=== PATIENT | female | born 2005 | race Caucasian/White ===

== ENCOUNTER 2025-03-22 16:24 | Inpatient (IN) ==
--- NOTE | 2025-03-22 16:31 | Emergency Department Note ---
Impression & Plan Mandibular fracture, Alcohol intoxication, Fall, Hypokalemia, Chipped tooth ED Provider Note NAME: GILBERT RAMIREZ AGE: 19 SEX: F : 2005 ARRIVES VIA: Ambulance INFORMANT: Patient ED PROVIDER(S): Marcin Hernandez DO CHIEF COMPLAINT: Fall HPI: Patient is a 19-year-old female who fell from 6 feet in the air and she was trying to get down from an elevated surface. She hit her face. She did not pass out. She complaining of jaw pain. She notes she was drinking alcohol today. No chest pain back pain or belly pain. No dysuria, urgency or frequency. No other exacerbating or remitting factors. She denies any medical complaints. No blood thinners. She feels like she did chip a tooth. ADDITIONAL HISTORY OBTAINED: Friends eventually showed up at bedside notes that she did not pass out. Chronic Medical/Social Conditions Affecting Care: Per HPI PAST MEDICAL HISTORY:See Below PAST SURGICAL HISTORY:See Below FAMILY HISTORY:See Below SOCIAL HISTORY:See Below HOME MEDICATIONS:See Below ALLERGIES:See Below VITALS:See Below PHYSICAL EXAMINATION: Primary Survey Airway: Intact Breathing: Normal, breath sounds equal bilaterally Circulation: Skin warm GCS: 15 Secondary Survey GENERAL: alert, crying, tearful, small alcohol of breath HEAD: normal cephalic, atraumatic. Clicking over the bilateral TMJs with opening closing the mouth worse on the left. EYE EXAM: normal conjunctiva, PERRL and EOM's grossly intact OROPHARYNX: no exudate, no erythema, lips, buccal mucosa, and tongue normal and mucous membranes are moist. Small chipped tooth right upper second molar. No exposed pulp. NECK: supple, no nuchal rigidity, no adenopathy, non-tender CHEST: stable to compression anteriorly and posteriorly LUNGS: clear to auscultation. Normal chest wall mechanics HEART: no murmurs, S1 normal and S2 normal ABDOMEN: abdomen soft, non-tender, normo-active bowel sounds, no masses, no rebound or guarding. PELVIS: stable to compression anteriorly and posteriorly BACK: Back is symmetrical on inspection and there is no deformity, no midline tenderness, no CVA tenderness. UPPER EXTREMITIES: full active and passive range of motion of all joints without tenderness to palpation LOWER EXTREMITIES: full active and passive range of motion of all joints without tenderness to palpation NEURO EXAM: Normal sensorium, cranial nerves II-XII grossly intact, normal speech, no gross weakness of arms, no gross weakness of legs. GCS: 15. MEDICAL DECISION MAKING: Patient is a 19-year-old female who fell from an elevated surface of 6 feet. She is complaining of jaw pain. She is intoxicated. IV was established and blood work was obtained. Labs showed no significant leukocytosis or anemia. INR unremarkable. BMP with mild hyponatremia 133 and a mild hypokalemia 3.3. LFTs bilirubin was unremarkable. hCG was negative. UA was clean. Alcohol was positive at just under 200. CT varner scan does show mandible fracture. On exam does not appear to be open. Consulted with our OMFS surgeon Dr. Lexa Jolly and he recommended admission. She also has a small chipped tooth. He will have this followed up on in the morning. I discussed with Dr. William luis patient was admitted for further evaluation management treatment. She was ordered IV fluids as well as IV morphine. Consults/Care Managements Discussions: Per [facility] Triage Nursing notes reviewed. Limited review of prior medical records performed Vital Signs: reviewed and remarkable for no significant abnormalities Differential diagnosis: Differential diagnoses include major intracranial, cervical, spinal, thoracic, abdominal, pelvic and neurologic injury. Fracture, contusion, sprain, strain, laceration, abrasions included as well. ER treatment provided: See below Diagnostics interpreted by me include EKG and cardiac monitoring as listed below: -Cardiac Monitoring: An order was placed for continuous cardiac monitoring. The monitor shows a rate of 70 with sinus rhythm. -ECG: none -Laboratory studies:Interpreted by me as stated above in MDM and shown below. Imaging studies: Xrays: As interpreted by me:none CTs show: CT varner scan shows a mandibular fracture. Procedures: None Critical Care: None Past Med/Surg History Problem List (Updated 03/22/25 @ 18:36 by Marcin Hernandez DO) Chipped tooth (Acute) Hypokalemia (Acute) Fall (Acute) Alcohol intoxication (Acute) Mandibular fracture (Acute) Social History Smoking Status: Unknown if ever smoked Feels Safe at Home: Yes Allergies Allergies Allergy/AdvReac Type Severity Reaction Status Date / Time No Known Allergies Allergy Unverified 03/22/25 18:18 Home Meds Home Medications Medication Instructions Recorded Confirmed sertraline 50 mg tablet 50 mg PO QAM 03/22/25 03/22/25 Results & Data (ED) Vital Signs Vital Signs - 24 hr 03/22/25 16:29 03/22/25 16:29 03/22/25 16:29 Temperature 36.7 C 36.7 C Temperature Source Oral Pulse Rate 100 H 100 H Pulse Rate [Apical] Respiratory Rate 17 17 Respiratory Effort / Characteristics Non-Labored Spontaneous Respiratory Depth Normal Respiratory Pattern Regular Blood Pressure 131/76 131/76 Blood Pressure [Left Arm] Blood Pressure [Right Arm] Blood Pressure Mean 94 Blood Pressure Mean [Left Arm] Blood Pressure Mean [Right Arm] Pulse Oximetry 100 100 100 Oxygen Delivery Method Room Air Room Air Room Air Oxygen Flow Rate 0 Sepsis Recent Fever Within 48 Hours No Sepsis New/Unexplained Change in Mental Status N/A Sepsis Action Taken by Nursing No Action Required 03/22/25 16:34 03/22/25 17:25 03/22/25 18:06 Temperature Temperature Source Pulse Rate 98 H Pulse Rate [Apical] 99 H 62 Respiratory Rate 18 14 Respiratory Effort / Characteristics Non-Labored Spontaneous Respiratory Depth Normal Respiratory Pattern Blood Pressure Blood Pressure [Left Arm] 115/63 Blood Pressure [Right Arm] 121/81 Blood Pressure Mean Blood Pressure Mean [Left Arm] 80 Blood Pressure Mean [Right Arm] 94 Pulse Oximetry 100 98 Oxygen Delivery Method Room Air Room Air Oxygen Flow Rate Sepsis Recent Fever Within 48 Hours Sepsis New/Unexplained Change in Mental Status Sepsis Action Taken by Nursing 03/22/25 18:25 Temperature Temperature Source Pulse Rate Pulse Rate [Apical] 68 Respiratory Rate 18 Respiratory Effort / Characteristics Respiratory Depth Respiratory Pattern Blood Pressure Blood Pressure [Left Arm] Blood Pressure [Right Arm] Blood Pressure Mean Blood Pressure Mean [Left Arm] Blood Pressure Mean [Right Arm] Pulse Oximetry 99 Oxygen Delivery Method Room Air Oxygen Flow Rate Sepsis Recent Fever Within 48 Hours Sepsis New/Unexplained Change in Mental Status Sepsis Action Taken by Nursing Laboratory Data 03/22/25 16:36 03/22/25 16:36 Lab Results 03/22/25 03/22/25 03/22/25 Range/Units 16:36 16:43 18:06 WBC 9.90 (4.8-10.8) K/ul RBC 4.20 (4.20-5.40) M/uL Hgb 12.8 (12.0-16.0) g/dl POC Hgb 13.3 (12.0-16.0) g/dl Hct 37.8 (37.0-47.0) % POC Hct 39 (37-47) % MCV 90.0 (80.0-100.0) fL MCH 30.5 (25.0-34.0) pg MCHC 33.9 (32.0-36.0) g/dL RDW Std Deviation 43.2 (36.4-46.3) fL RDW Coeff of [place] 13.2 (11.5-14.5) % Plt Count 298 (130-400) K/uL MPV 9.7 (9.4-12.4) fL Immature Gran % (Auto) 0.3 % Neut % (Auto) 70.8 % Lymph % (Auto) 21.4 % [place] % (Auto) 4.9 % Eos % (Auto) 2.1 % Baso % (Auto) 0.5 % Neut # (Auto) 7.00 H (1.40-6.50) K/uL Lymph # (Auto) 2.12 (1.20-3.40) K/uL [place] # (Auto) 0.49 (0.11-0.59) K/uL Eos # (Auto) 0.21 (0.00-0.50) K/uL Baso # (Auto) 0.05 (0.00-0.20) K/uL Immature Gran # (Auto) 0.03 (0.01-0.20) K/uL PT 11.2 (9.0-12.0) Seconds INR 1.1 (0.9-1.1) APTT 23 (21-31) Seconds PTT Ratio 0.8 POC Sodium 136 (135-144) mmol/L Sodium 133 L (136-145) mmol/L POC Potassium 3.3 (3.3-5.0) mmol/L Potassium 3.3 L (3.5-5.1) mmol/L POC Chloride 101 (101-112) mmol/L Chloride 101 (98-107) mmol/L Carbon Dioxide 21 (21-32) mmol/L POC Total CO2 20 L (24-31) mmol/L Anion Gap 11 (3-11) POC Anion Gap 19.0 (16-25) mmol/L POC BUN 6 L (7-18) mg/dl BUN 8 (6-23) mg/dl Creatinine 0.77 (0.6-1.2) mg/dl POC Creatinine 1.0 mg/dl Est Cr Clr Drug Dosing 97.2 ml/min eGFR 113.89 BUN/Creatinine Ratio 10.4 (10-20) Glucose 131 H (70-99(Fasting)) mg/dl POC Glucose (other) 129 H (70-99) mg/dl Calcium 9.1 (8.6-10.3) mg/dl POC Ioniz Calcium [place] 1.14 mmol/l Total Bilirubin 0.3 (0.2-1.0) mg/dl AST 60 H (13-39) U/L ALT 45 (7-52) U/L Alkaline Phosphatase 51 (34-104) U/L Total Protein 7.2 (6.0-8.3) gm/dl Albumin 4.3 (3.4-5.0) gm/dl Globulin 2.9 (2.5-4.0) gm/dl Albumin/Globulin Ratio 1.5 (0.9-2) Lipase 26 (11-82) U/L HCG, Qual Negative (Negative) Urine Color Yellow Urine Appearance Clear (Clear) Urine pH 7.5 (4.5-7.5) Ur Specific [place] 1.020 (1.000-1.030) Urine Protein Negative (Negative) Urine Glucose (UA) Negative (Negative) Urine Ketones Negative (Negative) Urine Blood Negative (Negative) Urine Nitrite Negative (Negative) Urine Bilirubin Negative (Negative) Urine Urobilinogen Negative (Negative) Ur Leukocyte Esterase Negative (Negative) Urine Comment Ethyl Alcohol mg/dL 195.3 H (<10.0) mg/dl Administered Medications Discontinued Medications Sodium Chloride (Nss) 1,000 mls @ 999 mls/hr IV .Q1H1M ONE Stop: 03/22/25 17:28 Last Infusion: 03/22/25 18:10 Dose: Infused Documented By: Admin: 03/22/25 17:08 Dose: 999 mls/hr Documented By: TOM Ioversol (Optiray 320 100ml) 94 ml IV ONCE ONE Stop: 03/22/25 16:44 Last Admin: 03/22/25 16:43 Dose: 94 ml Documented By: [place] Morphine Sulfate (Morphine Sulfate 2 Mg/Ml Carp) 2 mg IV NOW STA Stop: 03/22/25 17:50 Last Admin: 03/22/25 18:07 Dose: 2 mg Documented By: JANINE Ondansetron HCl (Ondansetron Inj 2 Mg/Ml 2 Ml Vial) Confirm Administered Dose 4 mg .ROUTE .K-MED ONE Stop: 03/22/25 16:34 Last Admin: 03/22/25 17:08 Dose: 4 mg Documented By: TOM Imaging Data Radiologist's Impression: Chest X-Ray 03/22/25 16:28 EXAM: Radiograph of the Chest 1 View INDICATION: Trauma TECHNIQUE: Frontal view of the chest. COMPARISON: No relevant prior studies available. FINDINGS: Lungs and pleural spaces: No consolidation or pulmonary edema. No pleural effusion or pneumothorax. Heart: Shape and configuration within normal limits allowing for technique. Mediastinum: Normal contour. Bones/joints: No fracture, erosion or dislocation. Soft tissues: No abnormality noted. No radiopaque foreign body noted. Upper abdomen: No abnormality noted. IMPRESSION: No abnormality noted. ACT 112: N/A Electronically signed by Julieta Baker 03-22-2025 5:[address] 03/22/25 16:28 EXAM: CT Maxillofacial Without Intravenous Contrast INDICATION: Trauma TECHNIQUE: Axial computed tomography images of the face without intravenous contrast. Sagittal and coronal reformatted images were created and reviewed. This CT exam was performed using one or more of the following dose reduction techniques: automated exposure control, adjustment of the mA and/or kV according to patient size, and/or use of iterative reconstruction technique. COMPARISON: No relevant prior studies available. FINDINGS: Bones/joints: Acute, nondisplaced fracture left mandibular angle. Mild degenerative changes right TMJ without dislocation. Soft tissues: No significant abnormality noted. Orbits: No abnormality noted. Sinuses: No layering fluid in the visualized portions of the paranasal sinuses. IMPRESSION: Acute, nondisplaced fracture left mandibular angle. ACT 112: N/A Electronically signed by Julieta Baker 03-22-2025 5:[address] 03/22/25 16:28 EXAM: CT Lumbar Spine With Intravenous Contrast INDICATION: Trauma TECHNIQUE: Axial computed tomography images of the lumbar spine with intravenous contrast. Sagittal and coronal reformatted images were created and reviewed. This CT exam was performed using one or more of the following dose reduction techniques: automated exposure control, adjustment of the mA and/or kV according to patient size, and/or use of iterative reconstruction technique. CONTRAST: 94 ml of Optiray 320 was administered intravenously. COMPARISON: No relevant prior studies available. FINDINGS: Limitations: None. Vertebrae: Convex left bowing of the lumbar spine. Lumbar vertebra normally developed and aligned. No fracture. Sacrum/coccyx: No significant abnormality noted. No acute change noted. Discs/spinal canal/neural foramina: No significant disc space abnormality or stenosis. Soft tissues: No significant abnormality noted. IMPRESSION: No acute findings in the lumbar spine. ACT 112: N/A Electronically signed by Julieta Baker 03-22-2025 5:[address] 03/22/25 16:28 EXAM: CT Thoracic Spine With Intravenous Contrast INDICATION: Trauma TECHNIQUE: Axial computed tomography images of the thoracic spine with intravenous contrast. Sagittal and coronal reformatted images were created and reviewed. This CT exam was performed using one or more of the following dose reduction techniques: automated exposure control, adjustment of the mA and/or kV according to patient size, and/or use of iterative reconstruction technique. COMPARISON: No relevant prior studies available. FINDINGS: Limitations: None. Vertebrae: There is mild convex right spinal bowing. No fracture or subluxation. Discs/spinal canal/neural foramina: Minimal diffuse disc space narrowing. Other bones/joints: No abnormality noted. Soft tissues: No significant abnormality noted. Heart: No abnormality noted. Mediastinum: No significant abnormality noted. Liver: No significant abnormality noted. IMPRESSION: No thoracic fracture. ACT 112: N/A Electronically signed by Julieta Baker 03-22-2025 5:15 PM Abdomen/Pelvis CT 03/22/25 16:29 EXAM: CT Abdomen and Pelvis With Intravenous Contrast INDICATION: Trauma TECHNIQUE: Axial computed tomography images of the abdomen and pelvis with intravenous contrast. Sagittal and coronal reformatted images were created and reviewed. This CT exam was performed using one or more of the following dose reduction techniques: automated exposure control, adjustment of the mA and/or kV according to patient size, and/or use of iterative reconstruction technique. CONTRAST: 94 ml of Optiray 320 was administered intravenously. COMPARISON: No relevant prior studies available. FINDINGS: Limitations: None. Lung bases: No abnormality noted. Pleural space: No visualized pleural effusion or pneumothorax. Heart: No abnormality noted. Mediastinum: No abnormality noted. ABDOMEN: Liver: No abnormality noted. Gallbladder and bile ducts: No calcified stones or surrounding fluid. No ductal dilation. Pancreas: Homogeneous enhancement. No mass, inflammation or ductal dilation. Spleen: No significant abnormality noted. Adrenals: No significant abnormality noted. Kidneys and ureters: Normal enhancement. No mass, hydronephrosis or visualized stone. Stomach and bowel: No distension or mucosal thickening. No inflammation noted. PELVIS: Appendix: No findings to suggest acute appendicitis. Bladder: No filling defects to suggest mass or large stone. No inflammation. Reproductive: No abnormalities noted. ABDOMEN and PELVIS: Intraperitoneal space: No free air. No significant fluid collection. Bones/joints: Convex left lumbar scoliotic curvature. Lumbar vertebra and the pelvic bones are intact. Soft tissues: No significant abnormality noted. Vasculature: No abdominal aortic aneurysm. Lymph nodes: No pathologically enlarged lymph nodes. IMPRESSION: Lumbar scoliosis. Otherwise negative abdominal and pelvic CT. ACT 112: N/A Electronically signed by Julieta Baker 03-22-2025 5:[address] 03/22/25 16:29 EXAM: CT Head and Cervical Spine Without Intravenous Contrast INDICATION: Trauma TECHNIQUE: Axial computed tomography images of the head/brain and cervical spine without intravenous contrast. Sagittal and coronal reformatted images were created and reviewed. This CT exam was performed using one or more of the following dose reduction techniques: automated exposure control, adjustment of the mA and/or kV according to patient size, and/or use of iterative reconstruction technique. COMPARISON: No relevant prior studies available. FINDINGS: Limitations: None. Brain and extra-axial spaces: No abnormality noted. No hemorrhage. No significant white matter disease. No edema. No ventriculomegaly. Sinuses: No layering fluid in the visualized portions of the paranasal sinuses. Mastoid air cells: No mastoid effusion. Orbits: No significant abnormality noted. Vertebrae: Vertebral body heights maintained. No fracture or significant subluxation. Discs/spinal canal/neural foramina: No significant disc space abnormality or stenosis. Soft tissues: No significant abnormality noted. Vasculature: No acute abnormality noted. Lung apices: No significant abnormality noted. Pleural space: No visualized pleural effusion or pneumothorax. IMPRESSION: No abnormality CT head or cervical spine. ACT 112: N/A Electronically signed by Julieta Baker 03-22-2025 5:[address] 03/22/25 16:29 EXAM: CT Chest With Intravenous Contrast INDICATION: Trauma TECHNIQUE: Axial computed tomography images of the chest with intravenous contrast. Sagittal and coronal reformatted images were created and reviewed. This CT exam was performed using one or more of the following dose reduction techniques: automated exposure control, adjustment of the mA and/or kV according to patient size, and/or use of iterative reconstruction technique. CONTRAST: 94 ml of Optiray 320 was administered intravenously. COMPARISON: No relevant prior studies available. FINDINGS: Limitations: None. Lungs and pleural spaces: No abnormality noted. No mass. No consolidation. No significant effusion. No pneumothorax. Heart: No abnormality noted. Thyroid: No abnormality noted. Bones/joints: No acute changes. Sternum, shoulders, visualized ribs and thoracic vertebra are intact. Soft tissues: No significant abnormality noted. Vasculature: No abnormality noted. No thoracic aortic aneurysm. Lymph nodes: No enlarged lymph nodes. IMPRESSION: No significant abnormality noted. ACT 112: N/A Electronically signed by Julieta Baker 03-22-2025 5:[address] 03/22/25 16:29 EXAM: CT Head and Cervical Spine Without Intravenous Contrast INDICATION: Trauma TECHNIQUE: Axial computed tomography images of the head/brain and cervical spine without intravenous contrast. Sagittal and coronal reformatted images were created and reviewed. This CT exam was performed using one or more of the following dose reduction techniques: automated exposure control, adjustment of the mA and/or kV according to patient size, and/or use of iterative reconstruction technique. COMPARISON: No relevant prior studies available. FINDINGS: Limitations: None. Brain and extra-axial spaces: No abnormality noted. No hemorrhage. No significant white matter disease. No edema. No ventriculomegaly. Sinuses: No layering fluid in the visualized portions of the paranasal sinuses. Mastoid air cells: No mastoid effusion. Orbits: No significant abnormality noted. Vertebrae: Vertebral body heights maintained. No fracture or significant subluxation. Discs/spinal canal/neural foramina: No significant disc space abnormality or stenosis. Soft tissues: No significant abnormality noted. Vasculature: No acute abnormality noted. Lung apices: No significant abnormality noted. Pleural space: No visualized pleural effusion or pneumothorax. IMPRESSION: No abnormality CT head or cervical spine. ACT 112: N/A Electronically signed by Julieta Baker 03-22-2025 5:03 PM Discharge Plan Visit Data Chief Complaint: Trauma Stated Complaint: TRAUMA ALERT, FALL ED Provider: Marcin Hernandez Discharge Problem: Mandibular fracture, Alcohol intoxication, Fall, Hypokalemia, Chipped tooth Condition: Fair Forms Stand Alone Forms: [facility] [employer] Prescriptions Prescriptions: No Action sertraline 50 mg Tablet 50 mg PO QAM Referrals Referrals: PCP,NO [Physician] - Discharge Problem: Mandibular fracture Qualifiers: Encounter type: initial encounter Fracture type: closed Mandible location: u nspecified site of mandible Laterality: unspecified laterality Qualified Code(s): S02.609A - Fracture of mandible, unspecified, initial encounter for closed fracture Alcohol intoxication Qualifiers: Complication of substance-induced condition: uncomplicated Qualified Code(s): F 10.920 - Alcohol use, unspecified with intoxication, uncomplicated Fall Qualifiers: Encounter type: initial encounter Qualified Code(s): W19.XXXA - Unspecified fall, initial encounter Chipped tooth Qualifiers: Encounter type: initial encounter Fracture type: closed Qualified Code(s): S 02.5XXA - Fracture of tooth (traumatic), initial encounter for closed fracture
[2025-03-22] MEDS: OPTIRAY 320 100ml IV ONE (16:43)
[2025-03-22 16:56] LABS: Hematocrit (blood only) 37.8 % (37.0-47.0); Hemoglobin 12.8 g/dl (12.0-16.0); Immature Granulocytes # (auto) 0.03 K/uL (0.01-0.20); Immature Granulocytes % (auto) 0.3 %; Mean Corpuscular Hemoglobin 30.5 pg (25.0-34.0); Mean Corpuscular Volume 90.0 fL (80.0-100.0); Platelet Count 298 K/uL (130-400); RDW Standard Deviation 43.2 fL (36.4-46.3); Red Blood Count 4.20 M/uL (4.20-5.40); White Blood Count 9.90 K/ul (4.8-10.8)
--- NOTE | 2025-03-22 17:03 | CT Scan Report ---
EXAM: CT Head and Cervical Spine Without Intravenous Contrast INDICATION: Trauma TECHNIQUE: Axial computed tomography images of the head/brain and cervical spine without intravenous contrast. Sagittal and coronal reformatted images were created and reviewed. This CT exam was performed using one or more of the following dose reduction techniques: automated exposure control, adjustment of the mA and/or kV according to patient size, and/or use of iterative reconstruction technique. COMPARISON: No relevant prior studies available. FINDINGS: Limitations: None. Brain and extra-axial spaces: No abnormality noted. No hemorrhage. No significant white matter disease. No edema. No ventriculomegaly. Sinuses: No layering fluid in the visualized portions of the paranasal sinuses. Mastoid air cells: No mastoid effusion. Orbits: No significant abnormality noted. Vertebrae: Vertebral body heights maintained. No fracture or significant subluxation. Discs/spinal canal/neural foramina: No significant disc space abnormality or stenosis. Soft tissues: No significant abnormality noted. Vasculature: No acute abnormality noted. Lung apices: No significant abnormality noted. Pleural space: No visualized pleural effusion or pneumothorax. IMPRESSION: No abnormality CT head or cervical spine. ACT 112: N/A Electronically signed by Julieta Baker 03-22-2025 5:03 PM
--- NOTE | 2025-03-22 17:05 | CT Scan Report ---
EXAM: CT Maxillofacial Without Intravenous Contrast INDICATION: Trauma TECHNIQUE: Axial computed tomography images of the face without intravenous contrast. Sagittal and coronal reformatted images were created and reviewed. This CT exam was performed using one or more of the following dose reduction techniques: automated exposure control, adjustment of the mA and/or kV according to patient size, and/or use of iterative reconstruction technique. COMPARISON: No relevant prior studies available. FINDINGS: Bones/joints: Acute, nondisplaced fracture left mandibular angle. Mild degenerative changes right TMJ without dislocation. Soft tissues: No significant abnormality noted. Orbits: No abnormality noted. Sinuses: No layering fluid in the visualized portions of the paranasal sinuses. IMPRESSION: Acute, nondisplaced fracture left mandibular angle. ACT 112: N/A Electronically signed by Julieta Baker 03-22-2025 5:04 PM
[2025-03-22] MEDS: SODIUM CHLORIDE 0.9% 1,000 ML IV ONE (17:08)
[2025-03-22] MEDS: ONDANSETRON INJ 2 MG/ML 2 ML VIAL ONE (17:08)
--- NOTE | 2025-03-22 17:08 | CT Scan Report ---
EXAM: CT Chest With Intravenous Contrast INDICATION: Trauma TECHNIQUE: Axial computed tomography images of the chest with intravenous contrast. Sagittal and coronal reformatted images were created and reviewed. This CT exam was performed using one or more of the following dose reduction techniques: automated exposure control, adjustment of the mA and/or kV according to patient size, and/or use of iterative reconstruction technique. CONTRAST: 94 ml of Optiray 320 was administered intravenously. COMPARISON: No relevant prior studies available. FINDINGS: Limitations: None. Lungs and pleural spaces: No abnormality noted. No mass. No consolidation. No significant effusion. No pneumothorax. Heart: No abnormality noted. Thyroid: No abnormality noted. Bones/joints: No acute changes. Sternum, shoulders, visualized ribs and thoracic vertebra are intact. Soft tissues: No significant abnormality noted. Vasculature: No abnormality noted. No thoracic aortic aneurysm. Lymph nodes: No enlarged lymph nodes. IMPRESSION: No significant abnormality noted. ACT 112: N/A Electronically signed by Julieta Baker 10-25-5 5:08 PM
--- NOTE | 2025-03-22 17:09 | CT Scan Report ---
EXAM: CT Abdomen and Pelvis With Intravenous Contrast INDICATION: Trauma TECHNIQUE: Axial computed tomography images of the abdomen and pelvis with intravenous contrast. Sagittal and coronal reformatted images were created and reviewed. This CT exam was performed using one or more of the following dose reduction techniques: automated exposure control, adjustment of the mA and/or kV according to patient size, and/or use of iterative reconstruction technique. CONTRAST: 94 ml of Optiray 320 was administered intravenously. COMPARISON: No relevant prior studies available. FINDINGS: Limitations: None. Lung bases: No abnormality noted. Pleural space: No visualized pleural effusion or pneumothorax. Heart: No abnormality noted. Mediastinum: No abnormality noted. ABDOMEN: Liver: No abnormality noted. Gallbladder and bile ducts: No calcified stones or surrounding fluid. No ductal dilation. Pancreas: Homogeneous enhancement. No mass, inflammation or ductal dilation. Spleen: No significant abnormality noted. Adrenals: No significant abnormality noted. Kidneys and ureters: Normal enhancement. No mass, hydronephrosis or visualized stone. Stomach and bowel: No distension or mucosal thickening. No inflammation noted. PELVIS: Appendix: No findings to suggest acute appendicitis. Bladder: No filling defects to suggest mass or large stone. No inflammation. Reproductive: No abnormalities noted. ABDOMEN and PELVIS: Intraperitoneal space: No free air. No significant fluid collection. Bones/joints: Convex left lumbar scoliotic curvature. Lumbar vertebra and the pelvic bones are intact. Soft tissues: No significant abnormality noted. Vasculature: No abdominal aortic aneurysm. Lymph nodes: No pathologically enlarged lymph nodes. IMPRESSION: Lumbar scoliosis. Otherwise negative abdominal and pelvic CT. ACT 112: N/A Electronically signed by Julieta Baker 03-22-2025 5:09 PM
[2025-03-22 17:13] LABS: Alanine Aminotransferase 45.0 U/L (7-52); Albumin Globulin Ratio 1.5 (0.9-2); Albumin Level 4.3 gm/dl (3.4-5.0); Alkaline Phosphatase 51.0 U/L (34-104); Anion Gap 11.0 (3-11); Bilirubin,Total 0.3 mg/dl (0.2-1.0); Blood Urea Nitrogen 8.0 mg/dl (6-23); Calcium 9.1 mg/dl (8.6-10.3); Carbon Dioxide 21.0 mmol/L (21-32); Chloride 101.0 mmol/L (98-107); Creatinine Clr Calc Pharmacy 97.2 ml/min; Globulin 2.9 gm/dl (2.5-4.0); Glucose 131.0 mg/dl (70-99(Fasting)); Lipase 26.0 U/L (11-82); Potassium 3.3 mmol/L (3.5-5.1); Sodium 133.0 mmol/L (136-145); Total Protein 7.2 gm/dl (6.0-8.3)
--- NOTE | 2025-03-22 17:15 | CT Scan Report ---
EXAM: CT Thoracic Spine With Intravenous Contrast INDICATION: Trauma TECHNIQUE: Axial computed tomography images of the thoracic spine with intravenous contrast. Sagittal and coronal reformatted images were created and reviewed. This CT exam was performed using one or more of the following dose reduction techniques: automated exposure control, adjustment of the mA and/or kV according to patient size, and/or use of iterative reconstruction technique. COMPARISON: No relevant prior studies available. FINDINGS: Limitations: None. Vertebrae: There is mild convex right spinal bowing. No fracture or subluxation. Discs/spinal canal/neural foramina: Minimal diffuse disc space narrowing. Other bones/joints: No abnormality noted. Soft tissues: No significant abnormality noted. Heart: No abnormality noted. Mediastinum: No significant abnormality noted. Liver: No significant abnormality noted. IMPRESSION: No thoracic fracture. ACT 112: N/A Electronically signed by Julieta Baker 03-22-2025 5:15 PM
[2025-03-22 17:19] LABS: Pregnancy Test, Serum Negative (Negative)
--- NOTE | 2025-03-22 17:23 | CT Scan Report ---
EXAM: CT Lumbar Spine With Intravenous Contrast INDICATION: Trauma TECHNIQUE: Axial computed tomography images of the lumbar spine with intravenous contrast. Sagittal and coronal reformatted images were created and reviewed. This CT exam was performed using one or more of the following dose reduction techniques: automated exposure control, adjustment of the mA and/or kV according to patient size, and/or use of iterative reconstruction technique. CONTRAST: 94 ml of Optiray 320 was administered intravenously. COMPARISON: No relevant prior studies available. FINDINGS: Limitations: None. Vertebrae: Convex left bowing of the lumbar spine. Lumbar vertebra normally developed and aligned. No fracture. Sacrum/coccyx: No significant abnormality noted. No acute change noted. Discs/spinal canal/neural foramina: No significant disc space abnormality or stenosis. Soft tissues: No significant abnormality noted. IMPRESSION: No acute findings in the lumbar spine. ACT 112: N/A Electronically signed by Julieta Baker 03-22-2025 5:23 PM
[2025-03-22 17:33] LABS: INR 1.1 (0.9-1.1); Partial Thromboplastin Time 23 Seconds (21-31); Prothrombin Time 11.2 Seconds (9.0-12.0)
--- NOTE | 2025-03-22 17:52 | XRay Report ---
EXAM: Radiograph of the Chest 1 View INDICATION: Trauma TECHNIQUE: Frontal view of the chest. COMPARISON: No relevant prior studies available. FINDINGS: Lungs and pleural spaces: No consolidation or pulmonary edema. No pleural effusion or pneumothorax. Heart: Shape and configuration within normal limits allowing for technique. Mediastinum: Normal contour. Bones/joints: No fracture, erosion or dislocation. Soft tissues: No abnormality noted. No radiopaque foreign body noted. Upper abdomen: No abnormality noted. IMPRESSION: No abnormality noted. ACT 112: N/A Electronically signed by Julieta Baker 03-22-2025 5:51 PM
--- NOTE | 2025-03-22 18:03 | History & Physical Report ---
Date of Service March 22, 2025 Assessment & Plan (1) Mandibular fracture: Plan: 19yo F who sustained a fall from ~7 feet striking her chin. 2-3 minute LOC. No head bleed. +mandibular fracture. Admitted for possible operative fixation and monitoring. Trauma alert, fall CThead: No abnormality of the CT head CTchest: No abnormality CTC-spine: No abnormality of the cervical spine CTA/P: Lumbar scoliosis. No acute intra-abdominal findings. No traumatic organ injury or fluid noted CTT-spine: No thoracic fracture CTL-spine: No acute lumbar findings Chest x-ray: No abnormalities. No rib fractures CTface: Acute nondisplaced fracture of the left mandibular angle Pharmacal prophylaxis pending surgical evaluation - Significant head strike with LOC. Mild headache, but no overt concussion sx at time of assessment. She did roll and reportedlyl hit the LEFT side of her head after her chin, no signs of MMA bleed on admitting scan. Due to severity of injury and LOC admit to M/T with neurochecks q4h. If increasing sedation or deficits --> stat repeat CT-H to re-eval. Uncomplicated closed left mandibular fracture CTface: Acute nondisplaced fracture of left mandibular angle No open wound, no open internal wound. No leukocytosis. no evidence of exposed bone. Antibiotics deferred. Follow fever curve and white count. If concern for infection arising start Unasyn. OMFS consulted. Suspect operative intervention. N.p.o. - Up to date on vaccinations including tetanus Alcohol intoxication Alcohol 195.3 on admission Supportive care Low risk of severe withdrawal. Several 7-day plus stretches without alcohol with no withdrawal symptoms. Does not drink alcohol daily Anxiety - Continue SSRI once no longer NPO (2) Alcohol intoxication: History of Present Illness Primary Care Provider: [facility] Amaya is a 19-year-old female with no past medical history who presents after falling from any elevated bunk "All I remember I was sitting on a 7 foot high bench. All I remember is falling. My friend and her boyfriend found" Per her friend: - Fell off 7 foot bench and landed on her chin, then hit the left side of her head. She was knocked out/unconscious. Her friend layed her on her side and called EMS when she did not wake up. No seizures. Was breathign and had a pulse. Was knocked out for 2-3 minutes then came around, opened her eyes. Was confused when waking up, but seemed to improve by time of arrival to the ER by EMS. No medical problems Zoloft 50mg daily. Took this today. History of fainting in the family, history of vasovagal syncope PGF hx of blood blood clots. No history of FVL. History of NM in her great paternal grandfather. No history of cardiomyopathy in first-degree relatives, father is active with no issues No tobacco products ETOH: 2-3 shots and some beers. Around 6-7 drinks total while going to [employer] 3 days a week ETOH. Went with a full week without ETOH this fall. Family lives in [facility]. She is a [employer] student No OCP use Medical History: Reviewed Medications: Reviewed Surgical History: Reviewed Family history: Reviewed Allergies: Reviewed. no allergies. No known penicillin allergies. Social History: 3x/wk ETOH 2-8 per sitting. 7+ etoh free days recently with no withdrawal sx Code Status: Full Allergies Allergy/AdvReac Type Severity Reaction Status Date / Time No Known Allergies Allergy Unverified 03/22/25 18:18 Home Medications Medication Instructions Recorded Confirmed Type sertraline 50 mg tablet 50 mg PO QAM 03/22/25 03/22/25 History Past Med/Surg History Problem List (Updated 03/22/25 @ 18:36 by Marcin Hernandez DO) Chipped tooth (Acute) Hypokalemia (Acute) Fall (Acute) Alcohol intoxication (Acute) Mandibular fracture (Acute) Social History Smoking Status: Unknown if ever smoked Feels Safe at Home: Yes Physical Exam Physical Exam: General: A&Ox3. NAD. Cooperative. HEENT:No obvious skin laceration. NO focal temporal tenderness/creptius. Oropharyngeal exam is with small right upper molar chipped tooth. No visible laceration, bleeding, or bony exposure. Vision grossly intact. Pupils equal and reactive to light. EOM without nystagmus or pain/entrapment. No diplopia or decreased visual acuity Pulm: CTAB A&P. -wheezes, -rales, -rhonchi. Symmetrical chest rise. No increased work of breathing. No respiratory distress. Cardiac: RRR, -mrg. Radial pulses intact and symmetrical. Abdominal: Nontender, nondistended, soft. BS present. Extremities: Moves all extremities equally. Rhit strength hip flexion and ankle dorsiflexion/plantarflexion 5/5. Sensation intact in hands and feet bilaterally. Results & Data Results & Data Vital Signs (Past 12 Hours) Vital Signs Temp Pulse Pulse Resp BP BP Pulse Ox 03/22/25 17:25 99 H 18 121/81 100 03/22/25 16:34 98 H 03/22/25 16:29 100 03/22/25 16:29 36.7 C 100 H 17 131/76 100 03/22/25 16:29 36.7 C 100 H 17 131/76 100 O2 Del Method O2 Flow Rate 03/22/25 17:25 Room Air 03/22/25 16:34 03/22/25 16:29 Room Air 03/22/25 16:29 Room Air 0 03/22/25 16:29 Room Air PG Care Time/CCT Total # of Minutes Spent Total Time Spent with Patient: Total time spent is greater than 50% in coordination of care (as documented) at patient's floor/unit and/or counseling patient: Coding Level of Care Code 14007 INT INP/OBS CARE 75MIN Diagnoses Mandibular fracture S02.609A Alcohol intoxication F10.929
[2025-03-22] MEDS: MoRPHine SULFATE 2 MG/ML CARP IV STA (18:07)
[2025-03-22 18:14] LABS: Appearance Urine Clear (Clear); Glucose Urine UA Negative (Negative)
[2025-03-22] MEDS ORDERED: MoRPHine SULFATE 4 MG/ML 1 ML CARP\\VIAL IV PRN (20:22)
[2025-03-22] MEDS: MoRPHine SULFATE 4 MG/ML 1 ML CARP\\VIAL IV PRN (21:14)
[2025-03-22] MEDS: D5W AND LACTATED RINGERS 1,000 ML IV SCH (21:25)
[2025-03-22] MEDS: ACETAMINOPHEN 1,000 MG/100 ML VIAL IV PRN (22:27)
[2025-03-23] MEDS ORDERED: SODIUM CHLORIDE 0.65% NA SOLN 45 ML (OCEAN) PRN (06:27)
[2025-03-23] MEDS ORDERED: MoRPHine SULFATE 4 MG/ML 1 ML CARP\\VIAL IV PRN ×2 (07:08)
[2025-03-23 08:25] VITALS: BP 102/61; PULSE 44; RESP 17; TEMP 98.2; O2SAT 97
[2025-03-23 09:07] LABS: Hematocrit (blood only) 32.6 % (37.0-47.0); Hemoglobin 11.3 g/dl (12.0-16.0); Immature Granulocytes # (auto) 0.03 K/uL (0.01-0.20); Immature Granulocytes % (auto) 0.4 %; Mean Corpuscular Hemoglobin 31.4 pg (25.0-34.0); Mean Corpuscular Volume 90.6 fL (80.0-100.0); Platelet Count 234 K/uL (130-400); RDW Standard Deviation 44.6 fL (36.4-46.3); Red Blood Count 3.60 M/uL (4.20-5.40); White Blood Count 8.22 K/ul (4.8-10.8)
--- NOTE | 2025-03-23 09:13 | Electrocardiogram Report ---
Test Reason : Blood Pressure : */* mmHG Vent. Rate : 49 BPM Atrial Rate : 49 BPM P-R Int : 164 ms QRS Dur : 84 ms QT Int : 492 ms P-R-T Axes : 43 74 80 degrees QTcB Int : 444 ms Sinus bradycardia with sinus arrhythmia Early repolarization Otherwise normal ECG No previous ECGs available Confirmed by Wesley Gil ([id number]) on 03/23/2025 9:13:29 AM Referred By: REFERRED SELF Confirmed By: Wesley Gil
--- NOTE | 2025-03-23 09:23 | XCELERA ---
[id number]
[2025-03-23 09:28] LABS: Anion Gap 5.0 (3-11); Blood Urea Nitrogen 7.0 mg/dl (6-23); Calcium 8.8 mg/dl (8.6-10.3); Carbon Dioxide 28.0 mmol/L (21-32); Chloride 107.0 mmol/L (98-107); Creatinine Clr Calc Pharmacy 106.9 ml/min; Glucose 109.0 mg/dl (70-99(Fasting)); Magnesium 1.9 mg/dl (1.7-2.4); Potassium 3.8 mmol/L (3.5-5.1); Sodium 140.0 mmol/L (136-145)
[2025-03-23 09:35] LABS: INR 1.1 (0.9-1.1); Prothrombin Time 11.4 Seconds (9.0-12.0)
--- NOTE | 2025-03-23 11:42 | Discharge Summary ---
Discharge Summary Date of Service March 23, 2025 Principal Dx & Hospital Course #1 = Principal Diagnosis (1) Mandibular fracture: 19yo F who sustained a fall from ~7 feet striking her chin. 2-3 minute LOC. No head bleed. +mandibular fracture. Admitted for possible operative fixation and monitoring. On morning reevaluation with surgical team showed good alignment of her jaw and was recommended for outpatient monitoring and follow-up in the coming week with OMFS. She was monitored overnight and through the following day for any neurologic symptoms given the severity of her head strike. Fortunately she remained neurovascularly intact with no deficits, no lethargy, no somnolence. She did have a borderline low blood pressure and heart rate, however had appropriate chronotropic response and was asymptomatic. Limited ultrasound was performed due due to a reported family history of in the 40s due to cardiac arrhythmia while playing tennis. Her ultrasound did not show evidence of hokum, had a normal EF, and traumatic pericardial effusion was not present. To do as outpatient: 1. Follow-up with OMFS. Appointment was scheduled for March 26 at 145p. 2. Monitor for concussion symptoms. Fortunately none of these at time of injury. 3. Establish with [facility] resident clinic primary care Trauma alert, fall CThead: No abnormality of the CT head CTchest: No abnormality CTC-spine: No abnormality of the cervical spine CTA/P: Lumbar scoliosis. No acute intra-abdominal findings. No traumatic organ injury or fluid noted CTT-spine: No thoracic fracture CTL-spine: No acute lumbar findings Chest x-ray: No abnormalities. No rib fractures CTface: Acute nondisplaced fracture of the left mandibular angle Pharmacal prophylaxis pending surgical evaluation - Significant head strike with LOC. Serial neurochecks were without deficits or abnormalities over the next 24 hours No acute findings on trauma reevaluation See discharge physical exam for tertiary trauma exam She will return under the care of her family for the next few days. Counseling was provided that if there was any numbness, tingling, confusion, lethargy, or focal weakness which develops to call 911 and seek immediate reattention in the emergency department for reevaluation as a sign of rare but potentially life-threatening delayed bleed. There is no evidence of this at time of discharge Uncomplicated closed left mandibular fracture CTface: Acute nondisplaced fracture of left mandibular angle No open wound, no open internal wound. No leukocytosis. no evidence of exposed bone. Antibiotics deferred. OMFS consulted. Conservative management nonoperative at this time, will allow swelling to go down and follow-up in office within approximately 3 days for reevaluation. No antibiotics recommended. Appreciate recommendations. Per OMFS consultation if needed on reevaluation would consider close reduction and internal elastics - Up to date on vaccinations including tetanus Soft bite-size diet Tylenol and ibuprofen for pain as outpatient. Counseled not to drink any alcohol while taking Tylenol Alcohol intoxication Alcohol 195.3 on admission Supportive care Low risk of severe withdrawal. Several 7-day plus stretches without alcohol with no withdrawal symptoms. Does not drink alcohol daily And has no withdrawal symptoms the following day Minimal AST elevation in the setting of acute alcohol use Anxiety - Continue SSRI (2) Alcohol intoxication: Admission HPI Per Admitting Provider Amaya is a 19-year-old female with no past medical history who presents after falling from any elevated bunk "All I remember I was sitting on a 7 foot high bench. All I remember is falling. My friend and her boyfriend found" Per her friend: - Fell off 7 foot bench and landed on her chin, then hit the left side of her head. She was knocked out/unconscious. Her friend layed her on her side and called EMS when she did not wake up. No seizures. Was breathign and had a pulse. Was knocked out for 2-3 minutes then came around, opened her eyes. Was confused when waking up, but seemed to improve by time of arrival to the ER by EMS. No medical problems Zoloft 50mg daily. Took this today. History of fainting in the family, history of vasovagal syncope PGF hx of blood blood clots. No history of FVL. History of [place] in her great paternal grandfather. No history of cardiomyopathy in first-degree relatives, father is active with no issues No tobacco products ETOH: 2-3 shots and some beers. Around 6-7 drinks total while going to [employer]. 3 days a week ETOH. Went with a full week without ETOH this fall. Family lives in [facility]. She is a [employer] student No OCP use Medical History: Reviewed Medications: Reviewed Surgical History: Reviewed Family history: Reviewed Allergies: Reviewed. no allergies. No known penicillin allergies. Social History: 3x/wk ETOH 2-8 per sitting. 7+ etoh free days recently with no withdrawal sx Code Status: Full Discharge Exam Tertiary Survey Physical Exam: No recreational drug use. Does not drink ETOH daily.. Alcohol use on weekends. no hx withdrawal sx. General: - Alert: Yes - Oriented: Yes - GCS 15: Yes HEENT: - Focal tenderness at the mandible bilaterally, more prominent at the left jaw. Slight abrasion to the chin without deep laceration. Left molar chip noted, no visible pulp. - No numbness/tingling - PERLAA. Normal Visual Acuity. No visual field cuts. No nystagmus. No contact lenses. Normal hearing. No relative afferent pupillary defect. No facial asymmetry. Normal palatal elevation, uvula midline. Midline tongue protrusion. Shoulder shrug with 5/5 strength bilaterally. - Mucous membranes moist. Neck: - Midline Tenderness: No - Cleared C-Spine: Yes Thorax: - Pain/Tenderness: None - Lacerations/Abrasions: None - Swelling/Ecchymosis: None - Air/Bony Creptius: None Cardiopulmonary: - Regular Rate and Rhythm. No murmurs, rubs or gallops. - Breath sounds CTAB. No wheezes, rales, or rhonchi. - Symmetrical Chest Rise Abdomen - Pain/Tenderness: None - Lacerations/Abrasions: None - No abdominal distension - No contusions overlying back/flank - Abdominal rigidity/guarding: None - Bowel Sounds: Present, normal - Pelvis stable Back/Spine - Lacerations/Abrasions: None - Swelling/Ecchymosis: None - Pain/Tenderness: None - Step-offs: None Extremities: - RUE: No deformity. No lacerations/abrasions. No swelling/ecchymosis. No pain/tenderness. Full active and passive range of motion. Eyelet Cutter strength, elbow flexion/extension, shoulder flexion/extension/abduction/adduction/external rotation/internal rotation intact with 5/5 strength. Sensation intact to soft touch without deficit. Radial pulse intact, cap refill in the thumb <2 seconds. - LUE: No deformity. No lacerations/abrasions. No swelling/ecchymosis. No pain/tenderness. Full active and passive range of motion. Eyelet Cutter strength, elbow flexion/extension, shoulder flexion/extension/abduction/adduction/external rotation/internal rotation intact with 5/5 strength. Sensation intact to soft touch without deficit. Radial pulse intact, cap refill in the thumb <2 seconds. - LLE: No deformity. No lacerations/abrasions. No swelling/ecchymosis. No pain/tenderness. Full active and passive range of motion. Hip flexion/extension, knee flexion/extension, ankle dorsiflexion/plantarflexion with 5/5 strength. Sensation intact to soft touch without deficit. PT pulse intact to palpation, cap refill in the hallux <2 seconds. - RLE: No deformity. No lacerations/abrasions. No swelling/ecchymosis. No pain/tenderness. Full active and passive range of motion. Hip flexion/extension, knee flexion/extension, ankle dorsiflexion/plantarflexion with 5/5 strength. Sensation intact to soft touch without deficit. PT pulse intact to palpation, cap refill in the hallux <2 seconds. Discharge Plan Discharge Items Patient Disposition: Home - Self-Care Reason For Visit: FALL, MANDIBULAR FRACTURE Discharge Diagnosis: Trauma, Mandibular Fxr Condition on Discharge: Fair Activity: Per Instructions section Non-emergency contact: Primary Care Provider Call non-emergency contact if: you have any medication questions, your symptoms worsen and your pain is not controlled Follow-up/Referrals: [facility] [Primary Care Provider] - Deann Driscoll MD [Resident] - (1-2 week followup) Diet: Regular Diet Texture: Dental soft (bite-sized) Addtl Attending Provider Instructions: You were seen in the hospital for atraumatic injury with loss of consciousness after falling off of a 7 foot height bench and striking your chin. You sustained a left mandibular fracture. You were seen by oral maxillofacial surgery and were recommended for conservative nonoperative management with close outpatient follow-up for reassessment. A referral to [facility] family medicine for routine follow-up is being scheduled for you. Due to a reported family history of cardiac at a young age while playing sports you had a ultrasound performed. An ultrasound of your heart did not show any evidence of heart abnormalities, and specifically there was no evidence of a condition called hypertrophic cardiomyopathy. You did not show any evidence of a traumatic effusion/pericardial effusion. Your heart pumping function was normal You may take Tylenol and ibuprofen for pain. You may take these together, or alternate these at your preference. You should not drink any alcohol while taking Tylenol as this can cause liver damage. You may take Tylenol 500 mg every 4 hours as needed for pain; alternatively you may take Tylenol Extra Strength 650 mg every 6 hours for pain. Do not take more than 3250 mg of Tylenol in any 24-hour period. Do not drink alcohol while t aking Tylenol as this can cause severe liver damage. You may take ibuprofen 400 mg every 4-6 hours as needed for pain. You may take this at the same time as, or alternate this with Tylenol at your preference. You are returning home under the supervision in care of your family. Your tertiary trauma evaluation did not show any other injuries and your neurologic evaluation did not show abnormalities and was stable. If you develop any weakness, numbness/tingling, confusion, or lethargy you should be reevaluated immediately in the emergency department as this can be a sign of rare delayed bleeding. If you develop any new or worsening symptoms including fever, chills, sweats, chest pain, chest pressure, difficulty breathing, uncontrolled nausea/vomiting, rash, wheezing, passing out or nearly passing out, bleeding, black/bloody bowel movements, or other new or concerning symptoms please call your primary care physician, or call 911 for re-evaluation in the emergency department if you are very concerned. Pending Studies at Discharge: No Stand-Alone Forms: My [facility], Work/School Release, Smoking Cessation Medications and DC Order Prescriptions: Continued sertraline 50 mg Tablet 50 mg PO QAM Discharge Orders: Discharge Order (Routine); Ordered 03/23/25 Ordered By: William Smith Admission Data Admit Date/Time: 03/22/25 18:45 Attending Provider: William Smith Admit Provider: William Smith Primary Care Provider: [facility] Other Providers: Betina Landry; Lexa Jolly Other Interventions: Discharge Summary Assessment (RN) Last Done: 03/23/25 13:22 Hospital Stay Data Consultations 03/22/25 17:49 ED Decision to Admit Stat 03/22/25 20:22 Consult Oromaxillofacial Surgery Routine Diagnostic Imagining Performed 03/22/25 16:28 CT face [CT facial bones wo con] Stat CT lumbar spine w con Stat CT thoracic spine w con Stat 03/22/25 16:29 CT abd pelvis IV con only Stat CT cervical spine wo con Stat CT chest diagnostic w con Stat CT head/brain wo con Stat Discharge Instructions Given to Patient (Per Discharging Provider) You were seen in the hospital for atraumatic injury with loss of consciousness after falling off of a 7 foot height bench and striking your chin. You sustained a left mandibular fracture. You were seen by oral maxillofacial surgery and were recommended for conservativ e nonoperative management with close outpatient follow-up for reassessment. A referral to [facility] for routine follow-up is being scheduled for you. Due to a reported family history of cardiac at a young age while playing sports you had a ultrasound performed. An ultrasound of your heart did not show any evidence of heart abnormalities, and specifically there was no evidence of a condition called hypertrophic cardiomyopathy. You did not show any evidence of a traumatic effusion/pericardial effusion. Your heart pumping function was normal You may take Tylenol and ibuprofen for pain. You may take these together, or alternate these at your preference. You should not drink any alcohol while taking Tylenol as this can cause liver damage. You may take Tylenol 500 mg every 4 hours as needed for pain; alternatively you may take Tylenol Extra Strength 650 mg every 6 hours for pain. Do not take more than 3250 mg of Tylenol in any 24-hour period. Do not drink alcohol while taking Tylenol as this can cause severe liver damage. You may take ibuprofen 400 mg every 4-6 hours as needed for pain. You may take this at the same time as, or alternate this with Tylenol at your preference. You are returning home under the supervision in care of your family. Your tertiary trauma evaluation did not show any other injuries and your neurologic evaluation did not show abnormalities and was stable. If you develop any weakness, numbness/tingling, confusion, or lethargy you should be reevaluated immediately in the emergency department as this can be a sign of rare delayed bleeding. If you develop any new or worsening symptoms including fever, chills, sweats, chest pain, chest pressure, difficulty breathing, uncontrolled nausea/vomiting, rash, wheezing, passing out or nearly passing out, bleeding, black/bloody bowel movements, or other new or concerning symptoms please call your primary care physician, or call 911 for re-evaluation in the emergency department if you are very concerned. Total Time Total Time Spent Total Time Spent (In Minutes): 50 Coding Level of Care Code 66451 INP/OBS DISCH >30 MIN Diagnoses Mandibular fracture S02.609A Encounter type: initial encounter Fracture type: closed Laterality: unspecified laterality Mandible location: unspecified site of mandible Alcohol intoxication F10.920 Complication of substance-induced condition: uncomplicated
[2025-03-23] MEDS: INFLUENZA VACC TS2025-26(6m+)/PF (IIV3) 0.5mL Syr IM ONE (12:09)
--- NOTE | 2025-03-23 14:34 | Oral/Maxillofacial Consult ---
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 She was having some alcoholic beverages. Somehow she made her way up to the top of what sounds to be a wet char conveyor tender chair which is a seat approximately 6 to 7 feet above the ground. For some unknown reason she either leaning forward or lost her balance and fell from the 6 to 7 foot chair onto the ground below. She struck her chin and she was told that she passed out for a few minutes. She was taken to [facility] for evaluation. The findings are as follows a minimally displaced left subcondylar fracture as well as the head trauma she was admitted for observation and neuro checks. She was doing quite well this morning and had some additional studies which also were found to be within normal limits. I evaluated her in room 281 bed 1 with her mother present. I had an opportunity to review the CT scan with Amaya and her mother and explained the anatomy and the minimal deviation of the fragment segment. The condyles well-seated in the fossa but it is slightly rotated medially. Her occlusion is relatively maintained except for what looks to be minimal 1 mm open bite left posterior area I firmly believe that this is due to trauma to the TM J disc causing some swelling in this area. She was quite emotional from the events that happened yesterday. She was having a lot of pain and moving her jaw. She had bilateral TMJ pain. Presently she had just a small bruise on the midline of her chin but I feel that there was quite a big impact of the TMJ joints into the disc tissue. There is no doubt that she will be having some TMJ issues. As a matter fact she and her mother told me that she has had some TMJ issues in the past. Her dental condition and occlusion is excellent after undergoing years of orthodontic therapy. Her teeth are in excellent shape and excellent oral hygiene. Amaya can open her mouth about 30 mm but has a lot of discomfort. When I had her close her mouth she maintains a relatively normal occlusion with a very slight 1 mm or so opening on the left side which is consistent with trauma to the TMJ. At this time with all the swelling and bruising around her face it is very difficult to determine if a closed reduction is necessary. When I have her closed her jaws and clench her teeth together she feels that all her teeth are lined up appropriately. Clinically I agree. However when she just closes into a natural position she strikes the right side first where the 1 mm opening of the left posterior segment is obvious. It is difficult at this time to ascertain if this is secondary to a malalignment problem due to the slight angulation of the left Sub condylar fracture or due to a risk retrodiscal hematoma secondary to the swelling. I feel at this time the most appropriate thing to do would be to send her back home to [place] where her mother would really like her to stay for the next few days. I discussed this with the hospitalist and he is in total agreement. We will be sending her home using ice soft diet I gave her some jaw exercises to do and instructed her to use Advil Tylenol Motrin combination. She was given a follow-up appointment for my office on March 26 at 1:45. The mother has my phone number and will call me if she feels that Delfina needs to stay home a little longer as we can reschedule this appointment until or Monday. I did review with her that when she comes back to see me if she is still having difficulty in closing the left side together I will have no choice except to consider doing a closed reduction with some functional elastics use for a period of anywhere from 2 to 3 weeks to enable settling of the subcondylar fracture and allowing the body to heal in ideal position. I do not feel that at this time that is necessary. I also reviewed the fact that it is not necessary to consider doing an open reduction given the minimal displacement and the very close to an ideal occlusal relationship. Amaya and her mother are in total agreement of this plan and we will be sending her home when she is cleared by the hospitalist for driving back to [place]. I will then see her for follow-up care in approximately 2 to 4 days. In summary this is a minimally displaced left subcondylar fracture with a relatively good opening a stable occlusion except for slight opening of the left posterior segment which possibly could be due to a swelling in the TMJ joint left side. If this opening does not resolve in a few days I will then consider doing some elastic therapy to help align her bite into the pre-trauma state. There is also a few chipped teeth on the right side as result of the impact. It was hard to get an accurate look because of her difficulty in opening her mouth I will be able to get a better look when I see her for follow-up later in the week Allergies Allergy/AdvReac Type Severity Reaction Status Date / Time No Known Allergies Allergy Unverified 03/22/25 18:18 Home Medications Medication Instructions Recorded Confirmed Type sertraline 50 mg tablet 50 mg PO QAM 03/22/25 03/22/25 History Patient History Social History Smoking Status: Never smoker Hx Alcohol Use: Yes Alcohol type: hard liquor Hx Substance Use: No Communication Ability: Effective Beliefs That Will Affect Care: None Current Living Situation: Other Current Living Situation Comment: apartment with roommates Feels Safe at Home: Yes Safety Concerns: Feels Safe At This Time Results & Data Vital Signs (Past 12 Hours) Vital Signs Temp Pulse Pulse Resp BP BP Pulse Ox 03/23/25 13:22 36.8 C 44 L 17 107/60 102/61 97 03/23/25 08:24 36.8 C 44 L 17 102/61 97 03/23/25 07:11 41 L 03/23/25 04:21 36.7 C 39 L 16 93/55 L 98 O2 Del Method 03/23/25 13:22 03/23/25 08:24 Room Air 03/23/25 07:11 03/23/25 04:21 Room Air PG Care Time/CCT Total # of Minutes Spent Total Time Spent with Patient: Total time spent is greater than 50% in coordination of care (as documented) at patient's floor/unit and/or counseling patient: Coding Level of Care Code 09395 OFFICE CONSULT LVL M Diagnoses Chipped tooth S02.5XXA Encounter type: initial encounter Fracture type: closed Hypokalemia E87.6 Fall W19.XXXA Encounter type: initial encounter Alcohol intoxication F10.920 Complication of substance-induced condition: uncomplicated Mandibular fracture S02.609A Encounter type: initial encounter Fracture type: closed Laterality: unspecified laterality Mandible location: unspecified site of mandible (1) Chipped tooth Encounter type: initial encounter Fracture type: closed Qualified Code(s): S02.5XXA - Fracture of tooth (traumatic), initial encounter for closed fracture (3) Fall Encounter type: initial encounter Qualified Code(s): W19.XXXA - Unspecified fall, initial encounter (4) Alcohol intoxication Complication of substance-induced condition: uncomplicated Qualified Code(s): F10.920 - Alcohol use, unspecified with intoxication, uncomplicated (5) Mandibular fracture Encounter type: initial encounter Fracture type: closed Laterality: unspecified laterality Mandible location: unspecified site of mandible Qualified Code(s): S02.609A - Fracture of mandible, unspecified, initial encounter for closed fracture
[2025-03-23] MEDS ORDERED: ACETAMINOPHEN 325 MG TAB PO PRN (18:00)
[2025-03-23] MEDS ORDERED: ENOXAPARIN INJ 40 MG/0.4 ML SYR SQ SCH (18:00)
[2025-03-24] MEDS ORDERED: SERTRALINE HCL 50 MG TABLET PO SCH (09:00)
== END 2025-03-23 14:30 | disposition home or self-care (01) | DRG 159 ==
LOC: ED 16:24 → 2N 18:45